=== PATIENT | male | born 1980 | race Hispanic/Latino ===

== ENCOUNTER → 2024-03-29 | Outpatient (REF) | payer MEDICARE | LOC: CT 07:29 | PROVIDERS: ATTEND Internal Medicine | DX: R16.1 Splenomegaly, not elsewhere classified (principal) | CPT/HCPCS: 74150 ==

== ENCOUNTER 2024-04-13 00:26 | Emergency (ER) | payer MEDICARE ==
[~2024-04-13] VITALS: Ht 177.8 cm; Wt 90.7 kg
[2024-04-13 00:55] VITALS: PULSE 87; RESP 16
[2024-04-13 01:05] LABS: BASOPHILS # (AUTO) 0.1 (0.0-0.1); BASOPHILS % 0.8 % (0.0-1.0); EOSINOPHILS # (AUTO) 0.7 (0.0-0.4); EOSINOPHILS % 9.4 % (0.0-6.0); HEMATOCRIT 43.9 % (38.2-49.6); HEMOGLOBIN 14.2 g/dL (14.0-18.0); LYMPHOCYTES % 26.1 % (18.0-39.1); MEAN CORPUSCULAR HGB CONC 32.3 g/dL (31-35); MEAN CORPUSCULAR VOLUME 89.8 fL (81-99); MONOCYTES # (AUTO) 0.5 (0.2-0.8); NEUTROPHILS # (AUTO) 4.3 (2.1-6.9); NEUTROPHILS % 57.4 % (38.7-80.0); PLATELET COUNT 233 x10e3/uL (140-360); RED BLOOD COUNT 4.89 x10e6/uL (4.3-5.7); RED CELL DISTRIBUTION WIDTH 13.2 % (11.7-14.4); WHITE BLOOD COUNT 7.55 x10e3/uL (4.8-10.8)
[2024-04-13] MEDS: SODIUM CHLORIDE 0.9% 1000ML 1,000 ML IV STA (01:21)
[2024-04-13] MEDS: METOCLOPRAMIDE HCL 10 MG/2ML VIAL IV ONE (01:22)
[2024-04-13 01:39] LABS: ALBUMIN 3.9 g/dL (3.5-5.0); ALBUMIN/GLOBULIN RATIO 1.2 (0.8-2.0); ANION GAP 17.7 mmol/L (8-16); BILIRUBIN,TOTAL 0.7 mg/dL (0.2-1.2); CALCIUM 9.6 mg/dL (8.4-10.2); CREATININE, SERUM 0.91 mg/dL (0.72-1.25); POTASSIUM 3.7 mmol/L (3.5-5.1); TOTAL PROTEIN 7.2 g/dL (6.5-8.1)
[2024-04-13 02:23] LABS: BILIRUBIN,URINE SMALL (NEGATIVE); CLARITY,URINE CLEAR (CLEAR); COLOR,URINE YELLOW (YELLOW); GLUCOSE, URINE >=1000 (NEGATIVE); KETONES,URINE 1+ (NEGATIVE); LEUKOCYTE ESTERASE ,URINE NEGATIVE (NEGATIVE); NITRITE,URINE NEGATIVE (NEGATIVE); PH,URINE 6 (5 - 7); PROTEIN,URINE DIPSTICK NEGATIVE (NEGATIVE)
[2024-04-13] MEDS ORDERED: REGLAN10 MG PO (02:23)
[2024-04-13 03:16] VITALS: TEMP 98.7
[2024-04-13 03:19] VITALS: BP 128/87; O2SAT 100
[2024-04-13 03:25] LABS: BACTERIA,URINE MODERATE /HPF; CALCIUM OXALATE CRYSTALS,UR MODERATE (FEW); EPITHELIAL CELLS,URINE FEW /LPF; RBC,URINE 0-5 /HPF (0-5); WBC,URINE (MAN) 0-5 /HPF (0-5)
[2024-04-15] MEDS ORDERED: ZESTRIL40 MG PO (08:24)
[2024-04-15] MEDS ORDERED: SERTRALINE HCL50 MG PO (08:24)
[2024-04-15] MEDS ORDERED: LIPITOR20 MG PO (08:24)
[2024-04-15] MEDS ORDERED: METOPROLOL SUCC25 MG PO (08:24)
[2024-04-15] MEDS ORDERED: PANTOPRAZOLE SO40 MG PO (08:24)
[2024-04-15] MEDS ORDERED: GLIMEPIRIDE2 MG PO (08:24)
[2024-04-15] MEDS ORDERED: JARDIANCE25 MG PO (08:24)
[2024-04-22] MEDS ORDERED: REGLAN5 MG PO (23:25)
== END 2024-04-13 03:13 | disposition home or self-care (01) ==
LOC: ER 00:35
DX: R11.2 Nausea with vomiting, unspecified (principal); R19.7 Diarrhea, unspecified; I10 Essential (primary) hypertension; E11.9 Type 2 diabetes mellitus without complications; E78.5 Hyperlipidemia, unspecified; K21.9 Gastro-esophageal reflux disease without esophagitis
CPT/HCPCS: 36415; 80053; 81001; 83690; 85025; 99284; J2765; J7030

== ENCOUNTER 2024-04-25 06:15 | Inpatient (IN) | payer MEDICARE ==
[~2024-04-25] VITALS: Ht 177.8 cm; Wt 88.9 kg
[~2024-04-25 06:15] MED LIST: BIOTIN1 MG PO; GLIMEPIRIDE2 MG PO; JARDIANCE25 MG PO; LIPITOR20 MG PO; METOPROLOL SUCC25 MG PO; MULTI-VITAMIN1 EACH PO; PANTOPRAZOLE SO40 MG PO; REGLAN10 MG PO; REGLAN5 MG PO; SERTRALINE HCL50 MG PO; VIAMIN PO; ZESTRIL40 MG PO
[2024-04-25] MEDS: LACTATED RINGER'S 1,000 ML ONE (07:45)
[2024-04-25] MEDS ORDERED: SUGAMMADEX SODIUM 200 MG/2 ML VIAL IV ONE (08:07)
[2024-04-25] MEDS ORDERED: SIMETHICONE 40 MG/0.6 ML BTL ONE (08:29)
[2024-04-25] MEDS ORDERED: MIDAZOLAM HCL 2 MG/2 ML VIAL ONE (09:46)
[2024-04-25] MEDS ORDERED: KETAMINE 50MG/5ML SYR ONE (09:46)
[2024-04-25] MEDS ORDERED: FENTANYL CITRATE/PF 100MCG/2 ML INJ ONE (11:05)
[2024-04-25] MEDS ORDERED: DEXTROSE 50% SYRINGE 50 ML IV PRN (12:00)
[2024-04-25] MEDS ORDERED: Morphine 2mg Syringe 2 MG/ML SYR IV PRN (12:00)
[2024-04-25] MEDS ORDERED: PROPOFOL IV EMULSION 10 MG/ML 20 ML VIAL ONE (14:22)
[2024-04-25] MEDS ORDERED: SEVOFLURANE INHAL SOLN 250 ML PEN BTL ONE (14:22)
[2024-04-25] MEDS ORDERED: LIDOCAINE HCL 2% LOCAL INJ 5 ML SDV VIAL INJ ONE (14:22)
[2024-04-25] MEDS ORDERED: SUCCINYLCHOLINE CHLORIDE 20 MG/ML 10ML VIAL ONE (14:22)
[2024-04-25] MEDS ORDERED: ONDANSETRON HCL INJ 2MG/ML 2ML 2 MG/ML VIAL ONE (14:22)
[2024-04-25] MEDS ORDERED: METOCLOPRAMIDE HCL 10 MG/2ML VIAL ONE (14:22)
[2024-04-25 15:10] VITALS: BP 119/86; PULSE 105; RESP 18; TEMP 97.9; O2SAT 100
[2024-04-25 16:00] VITALS: BP 121/87; PULSE 114; RESP 17; TEMP 98; O2SAT 99
[2024-04-25] MEDS: SODIUM CHLORIDE 0.9% 1000ML 1,000 ML IV SCH (16:04)
[2024-04-25] MEDS: INSULIN LISPRO 100 UNIT/1 ML 3ML VIAL SQ SCH (16:30)
[2024-04-25] MEDS: METOCLOPRAMIDE HCL 10 MG/2ML VIAL IV SCH (17:31)
[2024-04-25 20:00] VITALS: BP 134/91; PULSE 111; RESP 18; TEMP 98.6; O2SAT 100
[2024-04-25 21:00] VITALS: BP 134/91; PULSE 111; RESP 18; TEMP 98.6; O2SAT 100
[2024-04-25] MEDS ORDERED: BISACODYL 10 MG SUPP PR PRN (21:30)
[2024-04-25] MEDS: DEXTROSE 5%/0.45% SOD CHL 1,000 ML IV SCH (23:48)
[2024-04-26] VITALS (7 sets, daily range): BP systolic 116–168; BP diastolic 79–95; PULSE 87–108; RESP 16–20; TEMP 98–99.3; O2SAT 100
[2024-04-26 05:34] LABS: BASOPHILS % 0.7 % (0.0-1.0); EOSINOPHILS # (AUTO) 0.1 (0.0-0.4); EOSINOPHILS % 2.2 % (0.0-6.0); HEMATOCRIT 38.7 % (38.2-49.6); HEMOGLOBIN 12.6 g/dL (14.0-18.0); LYMPHOCYTES # (AUTO) 1.3 (1.0-3.2); MEAN CORPUSCULAR HEMOGLOBIN 29.2 pg (28-32); MEAN CORPUSCULAR HGB CONC 32.6 g/dL (31-35); MEAN CORPUSCULAR VOLUME 89.6 fL (81-99); MONOCYTES # (AUTO) 0.4 (0.2-0.8); MONOCYTES % 7.8 % (4.4-11.3); NEUTROPHILS # (AUTO) 3.6 (2.1-6.9); NEUTROPHILS % 66.1 % (38.7-80.0); PLATELET COUNT 216 x10e3/uL (140-360); RED BLOOD COUNT 4.32 x10e6/uL (4.3-5.7); RED CELL DISTRIBUTION WIDTH 13.3 % (11.7-14.4); WHITE BLOOD COUNT 5.51 x10e3/uL (4.8-10.8)
[2024-04-26 06:05] LABS: ALANINE AMINOTRANSFERASE 169 IU/L (0-55); ALBUMIN 3.5 g/dL (3.5-5.0); ALBUMIN/GLOBULIN RATIO 1.3 (0.8-2.0); ALKALINE PHOSPHATASE 47 IU/L (40-150); ANION GAP 18.1 mmol/L (8-16); BILIRUBIN,TOTAL 0.5 mg/dL (0.2-1.2); BLOOD UREA NITROGEN < 5 mg/dL (7-26); CALCIUM 8.6 mg/dL (8.4-10.2); CARBON DIOXIDE 17 mmol/L (22-29); CHLORIDE 107 mmol/L (98-107); CREATININE, SERUM 0.75 mg/dL (0.72-1.25); EST GLOMERULAR FILTRATION RATE 113 ML/MIN (>=60); GLUCOSE 73 mg/dL (74-118); MAGNESIUM 1.8 MG/DL (1.3-2.1); SODIUM 139 mmol/L (136-145); TOTAL PROTEIN 6.3 g/dL (6.5-8.1)
[2024-04-26 06:06] LABS: BUN/CREATININE RATIO 7 (6-25); POTASSIUM 3.1 mmol/L (3.5-5.1)
[2024-04-26] MEDS ORDERED: ALPRAZOLAM 0.5 MG TAB PO PRN (06:30)
[2024-04-26] MEDS: LORAZEPAM INJ 2 MG/ML VIAL IV PRN (07:31)
[2024-04-26] MEDS: POTASSIUM CHLORIDE 10MEQ/100ML 300 ML IV ONE (10:43)
[2024-04-26] MEDS ORDERED: PHENYLEPHRINE HCL 1% 10 MG/ML VIAL ONE (17:40)
[2024-04-26] MEDS ORDERED: SUCCINYLCHOLINE CHLORIDE 20 MG/ML 10ML VIAL ONE (17:40)
[2024-04-26] MEDS ORDERED: ONDANSETRON HCL INJ 2MG/ML 2ML 2 MG/ML VIAL ONE (17:40)
[2024-04-26] MEDS ORDERED: LIDOCAINE HCL 2% LOCAL INJ 5 ML SDV VIAL INJ ONE (17:40)
[2024-04-26] MEDS ORDERED: ROCURONIUM BROMIDE 10 MG/ML 5ML VIAL IV ONE (17:40)
[2024-04-26] MEDS ORDERED: PROPOFOL IV EMULSION 10 MG/ML 20 ML VIAL ONE (17:40)
[2024-04-26] MEDS ORDERED: DEXAMETHASONE SOD PHOS INJ 4 MG/ML SDV ONE (17:40)
[2024-04-26] MEDS: BISACODYL 10 MG SUPP PR SCH (21:29)
[2024-04-27] VITALS (8 sets, daily range): BP systolic 97–132; BP diastolic 77–93; PULSE 84–106; RESP 16–18; TEMP 97.8–98.4; O2SAT 98–100
[2024-04-27 05:42] LABS: BASOPHILS % 0.3 % (0.0-1.0); EOSINOPHILS # (AUTO) 0.5 (0.0-0.4); EOSINOPHILS % 7.9 % (0.0-6.0); HEMOGLOBIN 13.1 g/dL (14.0-18.0); LYMPHOCYTES # (AUTO) 1.4 (1.0-3.2); LYMPHOCYTES % 24.6 % (18.0-39.1); MEAN CORPUSCULAR VOLUME 90.9 fL (81-99); MONOCYTES # (AUTO) 0.5 (0.2-0.8); MONOCYTES % 7.9 % (4.4-11.3); NEUTROPHILS # (AUTO) 3.4 (2.1-6.9); PLATELET COUNT 212 x10e3/uL (140-360); RED BLOOD COUNT 4.51 x10e6/uL (4.3-5.7); RED CELL DISTRIBUTION WIDTH 13.3 % (11.7-14.4); WHITE BLOOD COUNT 5.82 x10e3/uL (4.8-10.8)
[2024-04-27 06:00] LABS: ANION GAP 12.1 mmol/L (8-16); BLOOD UREA NITROGEN < 5 mg/dL (7-26); CALCIUM 9.1 mg/dL (8.4-10.2); CARBON DIOXIDE 24 mmol/L (22-29); CHLORIDE 106 mmol/L (98-107); EST GLOMERULAR FILTRATION RATE 111 ML/MIN (>=60); GLUCOSE 91 mg/dL (74-118); MAGNESIUM 1.7 MG/DL (1.3-2.1); SODIUM 139 mmol/L (136-145)
[2024-04-27 06:03] LABS: BUN/CREATININE RATIO 6 (6-25); POTASSIUM 3.1 mmol/L (3.5-5.1)
[2024-04-27] MEDS: MAGNESIUM SULF 1GRAM/DEXTROSE 100 ML IV ONE (08:20)
[2024-04-27] MEDS: POTASSIUM CHLORIDE 20MEQ/100ML 100 ML IV SCH (11:08)
[2024-04-28] VITALS (8 sets, daily range): BP systolic 123–130; BP diastolic 87–92; PULSE 79–102; RESP 16–20; TEMP 97.6–99.2; O2SAT 99–100
[2024-04-28 06:12] LABS: ANION GAP 14.9 mmol/L (8-16); BLOOD UREA NITROGEN < 5 mg/dL (7-26); CALCIUM 8.9 mg/dL (8.4-10.2); CARBON DIOXIDE 22 mmol/L (22-29); CHLORIDE 106 mmol/L (98-107); CREATININE, SERUM 0.68 mg/dL (0.72-1.25); EST GLOMERULAR FILTRATION RATE 117 ML/MIN (>=60); GLUCOSE 92 mg/dL (74-118); MAGNESIUM 1.9 MG/DL (1.3-2.1); SODIUM 140 mmol/L (136-145)
[2024-04-28 06:21] LABS: BUN/CREATININE RATIO 7 (6-25)
[2024-04-28 06:22] LABS: POTASSIUM 2.9 mmol/L (3.5-5.1)
[2024-04-28 06:35] LABS: PHOSPHORUS 3.9 MG/DL (2.3-4.7)
[2024-04-28] MEDS: POTASSIUM CHLORIDE 20MEQ/100ML 100 ML IV ONE (07:40)
[2024-04-28] MEDS: DEXTROSE 5%/0.45% SOD CHL 1,000 ML IV SCH (08:00)
[2024-04-28] MEDS: POTASSIUM CHLORIDE 20MEQ/100ML 200 ML IV ONE (10:32)
[2024-04-29] VITALS (23 sets, daily range): BP systolic 101–148; BP diastolic 74–106; PULSE 82–112; RESP 9–31; TEMP 97.6–98.6; O2SAT 94–100
[2024-04-29 06:03] LABS: BASOPHILS % 0.7 % (0.0-1.0); EOSINOPHILS # (AUTO) 0.5 (0.0-0.4); EOSINOPHILS % 11.3 % (0.0-6.0); HEMATOCRIT 38.9 % (38.2-49.6); HEMOGLOBIN 12.7 g/dL (14.0-18.0); LYMPHOCYTES # (AUTO) 1.2 (1.0-3.2); MEAN CORPUSCULAR HEMOGLOBIN 29.1 pg (28-32); MEAN CORPUSCULAR HGB CONC 32.6 g/dL (31-35); MEAN CORPUSCULAR VOLUME 89.2 fL (81-99); MONOCYTES # (AUTO) 0.4 (0.2-0.8); MONOCYTES % 8.7 % (4.4-11.3); NEUTROPHILS # (AUTO) 2.2 (2.1-6.9); NEUTROPHILS % 51.1 % (38.7-80.0); PLATELET COUNT 205 x10e3/uL (140-360); RED BLOOD COUNT 4.36 x10e6/uL (4.3-5.7); RED CELL DISTRIBUTION WIDTH 13.3 % (11.7-14.4); WHITE BLOOD COUNT 4.35 x10e3/uL (4.8-10.8)
[2024-04-29 06:26] LABS: ANION GAP 12.2 mmol/L (8-16); BLOOD UREA NITROGEN < 5 mg/dL (7-26); CALCIUM 9.1 mg/dL (8.4-10.2); CARBON DIOXIDE 24 mmol/L (22-29); CHLORIDE 108 mmol/L (98-107); CREATININE, SERUM 0.73 mg/dL (0.72-1.25); EST GLOMERULAR FILTRATION RATE 114 ML/MIN (>=60); GLUCOSE 98 mg/dL (74-118); SODIUM 141 mmol/L (136-145)
[2024-04-29 06:27] LABS: BUN/CREATININE RATIO 7 (6-25); POTASSIUM 3.2 mmol/L (3.5-5.1)
[2024-04-29] MEDS: SODIUM CHLORIDE 0.9% 1000ML 1,000 ML ONE (10:25)
[2024-04-29] MEDS: POTASSIUM CHLORIDE 10MEQ/100ML 300 ML IV ONE (11:45)
[2024-04-29] MEDS ORDERED: MIDAZOLAM HCL 2 MG/2 ML VIAL ONE (12:47)
[2024-04-29] MEDS ORDERED: FENTANYL CITRATE/PF 100MCG/2 ML INJ ONE ×2 (12:47→12:57)
[2024-04-29] MEDS: ROPIVACAINE/EPI/CLONIDINE/KET 50 ML SYRINGE INJ ONE (13:22)
[2024-04-29] MEDS ORDERED: PROPOFOL IV EMULSION 10 MG/ML 20 ML VIAL ONE (17:23)
[2024-04-29] MEDS ORDERED: SUGAMMADEX SODIUM 200 MG/2 ML VIAL IV ONE (17:23)
[2024-04-29] MEDS ORDERED: LIDOCAINE HCL 2% LOCAL INJ 5 ML SDV VIAL INJ ONE (17:23)
[2024-04-29] MEDS ORDERED: ACETAMINOPHEN 1000 MG/100 ML IV ONE (17:23)
[2024-04-29] MEDS ORDERED: SEVOFLURANE INHAL SOLN 250 ML PEN BTL ONE (17:23)
[2024-04-29] MEDS ORDERED: DEXAMETHASONE SOD PHOS INJ 4 MG/ML SDV ONE (17:23)
[2024-04-29] MEDS ORDERED: PHENYLEPHRINE HCL 1% 10 MG/ML VIAL ONE (17:23)
[2024-04-29] MEDS ORDERED: DEXMEDETOMIDINE HCL 200 MCG/2 ML VIAL ONE (17:23)
[2024-04-29] MEDS ORDERED: ROCURONIUM BROMIDE 10 MG/ML 5ML VIAL IV ONE (17:23)
[2024-04-29] MEDS ORDERED: SUCCINYLCHOLINE CHLORIDE 20 MG/ML 10ML VIAL ONE (17:23)
[2024-04-29] MEDS ORDERED: ONDANSETRON HCL INJ 2MG/ML 2ML 2 MG/ML VIAL ONE (17:23)
[2024-04-29] MEDS: SODIUM CHLORIDE 0.9% 250ML IRRIG IR SCH (18:00)
[2024-04-29] MEDS: D5.45%NS/KCL 20MEQ 1,000 ML IV SCH (18:17)
[2024-04-29] MEDS: HYDROMORPHONE 1MG/1ML INJ IV PRN (18:34)
[2024-04-30] VITALS (45 sets, daily range): BP systolic 110–147; BP diastolic 72–106; PULSE 96–121; RESP 13–34; TEMP 98.2–99; O2SAT 90–96
[2024-04-30 06:35] LABS: BASOPHILS % 0.1 % (0.0-1.0); HEMOGLOBIN 13.7 g/dL (14.0-18.0); LYMPHOCYTES # (AUTO) 0.6 (1.0-3.2); LYMPHOCYTES % 7.7 % (18.0-39.1); MEAN CORPUSCULAR HEMOGLOBIN 28.9 pg (28-32); MEAN CORPUSCULAR HGB CONC 32.6 g/dL (31-35); MEAN CORPUSCULAR VOLUME 88.6 fL (81-99); MONOCYTES # (AUTO) 0.7 (0.2-0.8); MONOCYTES % 8.6 % (4.4-11.3); NEUTROPHILS # (AUTO) 6.3 (2.1-6.9); NEUTROPHILS % 83.3 % (38.7-80.0); PLATELET COUNT 248 x10e3/uL (140-360); RED BLOOD COUNT 4.74 x10e6/uL (4.3-5.7); RED CELL DISTRIBUTION WIDTH 13.4 % (11.7-14.4); WHITE BLOOD COUNT 7.52 x10e3/uL (4.8-10.8)
[2024-04-30 07:14] LABS: ALBUMIN 3.2 g/dL (3.5-5.0); ALBUMIN/GLOBULIN RATIO 1.2 (0.8-2.0); ANION GAP 12.7 mmol/L (8-16); BILIRUBIN,TOTAL 0.6 mg/dL (0.2-1.2); CALCIUM 8.5 mg/dL (8.4-10.2); CREATININE, SERUM 0.63 mg/dL (0.72-1.25); POTASSIUM 3.7 mmol/L (3.5-5.1); TOTAL PROTEIN 5.9 g/dL (6.5-8.1)
[2024-04-30] MEDS: ACETAMINOPHEN 1000 MG/100 ML IV PRN (09:31)
[2024-04-30] MEDS: BUPIVACAINE LIPOSOME/PF 266 MG/20 ML IJ ONE (13:09)
[2024-05-01] VITALS (22 sets, daily range): BP systolic 110–147; BP diastolic 80–107; PULSE 101–127; RESP 19–38; TEMP 96.7–99; O2SAT 92–100
[2024-05-01 06:33] LABS: BASOPHILS % 0.4 % (0.0-1.0); EOSINOPHILS # (AUTO) 0.1 (0.0-0.4); EOSINOPHILS % 1.1 % (0.0-6.0); HEMATOCRIT 41.5 % (38.2-49.6); HEMOGLOBIN 13.1 g/dL (14.0-18.0); LYMPHOCYTES # (AUTO) 0.6 (1.0-3.2); LYMPHOCYTES % 7.2 % (18.0-39.1); MEAN CORPUSCULAR HEMOGLOBIN 28.8 pg (28-32); MEAN CORPUSCULAR HGB CONC 31.6 g/dL (31-35); MEAN CORPUSCULAR VOLUME 91.2 fL (81-99); MONOCYTES # (AUTO) 0.7 (0.2-0.8); MONOCYTES % 8.1 % (4.4-11.3); NEUTROPHILS # (AUTO) 6.8 (2.1-6.9); PLATELET COUNT 211 x10e3/uL (140-360); RED BLOOD COUNT 4.55 x10e6/uL (4.3-5.7); RED CELL DISTRIBUTION WIDTH 13.3 % (11.7-14.4); WHITE BLOOD COUNT 8.19 x10e3/uL (4.8-10.8)
[2024-05-01 07:10] LABS: ALANINE AMINOTRANSFERASE 149 IU/L (0-55); ALBUMIN 2.9 g/dL (3.5-5.0); ALBUMIN/GLOBULIN RATIO 0.9 (0.8-2.0); ALKALINE PHOSPHATASE 47 IU/L (40-150); ANION GAP 12.7 mmol/L (8-16); BILIRUBIN,TOTAL 0.9 mg/dL (0.2-1.2); BLOOD UREA NITROGEN < 5 mg/dL (7-26); BUN/CREATININE RATIO 9 (6-25); CALCIUM 8.7 mg/dL (8.4-10.2); CARBON DIOXIDE 22 mmol/L (22-29); CHLORIDE 102 mmol/L (98-107); CREATININE, SERUM 0.58 mg/dL (0.72-1.25); EST GLOMERULAR FILTRATION RATE 123 ML/MIN (>=60); GLUCOSE 139 mg/dL (74-118); POTASSIUM 3.7 mmol/L (3.5-5.1); SODIUM 133 mmol/L (136-145)
[2024-05-01] MEDS: ONDANSETRON HCL INJ 2MG/ML 2ML 2 MG/ML VIAL IV PRN (12:42)
[2024-05-01 16:40] LABS: HEPATITIS B SURFACE AG (P) Non Reactive
[2024-05-01 16:41] LABS: HEPATITIS C ANTIBODY Non Reactive
[2024-05-01] MEDS: BISACODYL 10 MG SUPP PR SCH (20:56)
[2024-05-02] VITALS (18 sets, daily range): BP systolic 111–137; BP diastolic 78–98; PULSE 100–126; RESP 15–30; TEMP 96.7–98.8; O2SAT 91–100
[2024-05-02 05:13] LABS: BASOPHILS % 0.3 % (0.0-1.0); EOSINOPHILS # (AUTO) 0.2 (0.0-0.4); EOSINOPHILS % 3.8 % (0.0-6.0); HEMATOCRIT 38.7 % (38.2-49.6); HEMOGLOBIN 12.5 g/dL (14.0-18.0); LYMPHOCYTES # (AUTO) 0.7 (1.0-3.2); LYMPHOCYTES % 10.4 % (18.0-39.1); MEAN CORPUSCULAR HEMOGLOBIN 29.1 pg (28-32); MEAN CORPUSCULAR HGB CONC 32.3 g/dL (31-35); MONOCYTES # (AUTO) 0.5 (0.2-0.8); MONOCYTES % 7.9 % (4.4-11.3); NEUTROPHILS # (AUTO) 4.9 (2.1-6.9); NEUTROPHILS % 77.3 % (38.7-80.0); PLATELET COUNT 220 x10e3/uL (140-360); RED CELL DISTRIBUTION WIDTH 13.2 % (11.7-14.4); WHITE BLOOD COUNT 6.35 x10e3/uL (4.8-10.8)
[2024-05-02 05:48] LABS: ALANINE AMINOTRANSFERASE 103 IU/L (0-55); ALBUMIN 2.8 g/dL (3.5-5.0); ALBUMIN/GLOBULIN RATIO 0.9 (0.8-2.0); ALKALINE PHOSPHATASE 53 IU/L (40-150); ANION GAP 12.5 mmol/L (8-16); BLOOD UREA NITROGEN < 5 mg/dL (7-26); CALCIUM 8.7 mg/dL (8.4-10.2); CARBON DIOXIDE 25 mmol/L (22-29); CHLORIDE 104 mmol/L (98-107); CREATININE, SERUM 0.63 mg/dL (0.72-1.25); EST GLOMERULAR FILTRATION RATE 120 ML/MIN (>=60); GLUCOSE 139 mg/dL (74-118); POTASSIUM 3.5 mmol/L (3.5-5.1); SODIUM 138 mmol/L (136-145); TOTAL PROTEIN 5.9 g/dL (6.5-8.1)
[2024-05-02 05:50] LABS: BUN/CREATININE RATIO 8 (6-25)
[2024-05-02] MEDS: MAGNESIUM SULFATE 2GM/50ML 50 ML IV ONE (08:06)
[2024-05-03] VITALS: BP 109/84; PULSE 115; RESP 24; O2SAT 96
[2024-05-03 02:00] VITALS: BP 112/84; PULSE 108; RESP 16; O2SAT 92
[2024-05-03 04:00] VITALS: BP 123/86; PULSE 98; RESP 16; TEMP 98.3; O2SAT 95
[2024-05-03 06:00] VITALS: BP 107/86; PULSE 103; RESP 13; O2SAT 95
[2024-05-03 06:06] LABS: BASOPHILS % 0.4 % (0.0-1.0); EOSINOPHILS # (AUTO) 0.4 (0.0-0.4); EOSINOPHILS % 7.8 % (0.0-6.0); HEMATOCRIT 39.7 % (38.2-49.6); HEMOGLOBIN 12.2 g/dL (14.0-18.0); LYMPHOCYTES # (AUTO) 1.1 (1.0-3.2); LYMPHOCYTES % 22.2 % (18.0-39.1); MEAN CORPUSCULAR HEMOGLOBIN 28.4 pg (28-32); MEAN CORPUSCULAR HGB CONC 30.7 g/dL (31-35); MEAN CORPUSCULAR VOLUME 92.3 fL (81-99); MONOCYTES # (AUTO) 0.5 (0.2-0.8); MONOCYTES % 9.5 % (4.4-11.3); NEUTROPHILS # (AUTO) 2.8 (2.1-6.9); NEUTROPHILS % 59.9 % (38.7-80.0); PLATELET COUNT 266 x10e3/uL (140-360); RED CELL DISTRIBUTION WIDTH 13.1 % (11.7-14.4); WHITE BLOOD COUNT 4.72 x10e3/uL (4.8-10.8)
[2024-05-03 06:38] LABS: ALANINE AMINOTRANSFERASE 76 IU/L (0-55); ALBUMIN 2.7 g/dL (3.5-5.0); ALBUMIN/GLOBULIN RATIO 0.8 (0.8-2.0); ALKALINE PHOSPHATASE 49 IU/L (40-150); ANION GAP 11.5 mmol/L (8-16); BILIRUBIN,TOTAL 0.9 mg/dL (0.2-1.2); BLOOD UREA NITROGEN < 5 mg/dL (7-26); CARBON DIOXIDE 28 mmol/L (22-29); CHLORIDE 103 mmol/L (98-107); CREATININE, SERUM 0.64 mg/dL (0.72-1.25); EST GLOMERULAR FILTRATION RATE 119 ML/MIN (>=60); GLUCOSE 113 mg/dL (74-118); MAGNESIUM 1.9 MG/DL (1.3-2.1); POTASSIUM 3.5 mmol/L (3.5-5.1); SODIUM 139 mmol/L (136-145); TOTAL PROTEIN 6.1 g/dL (6.5-8.1)
[2024-05-03 06:39] LABS: BUN/CREATININE RATIO 8 (6-25)
[2024-05-03] MEDS: METOPROLOL SUCCINATE 25 MG TAB XL PO SCH (12:34)
[2024-05-03 20:00] VITALS: BP 114/79; PULSE 96; RESP 28; TEMP 99.1; O2SAT 93
[2024-05-04] VITALS (21 sets, daily range): BP systolic 104–139; BP diastolic 73–107; PULSE 95–127; RESP 16–31; TEMP 97.9–99.1; O2SAT 87–98
[2024-05-04] MEDS: METOCLOPRAMIDE HCL 10 MG/2ML VIAL IV STA (02:43)
[2024-05-04] MEDS: METOCLOPRAMIDE HCL 10 MG/2ML VIAL IV SCH (06:38)
[2024-05-04 06:53] LABS: BASOPHILS % 0.3 % (0.0-1.0); EOSINOPHILS % 0.7 % (0.0-6.0); HEMATOCRIT 37.7 % (38.2-49.6); HEMOGLOBIN 12.1 g/dL (14.0-18.0); LYMPHOCYTES # (AUTO) 0.5 (1.0-3.2); LYMPHOCYTES % 7.7 % (18.0-39.1); MEAN CORPUSCULAR HEMOGLOBIN 29.1 pg (28-32); MEAN CORPUSCULAR HGB CONC 32.1 g/dL (31-35); MEAN CORPUSCULAR VOLUME 90.6 fL (81-99); MONOCYTES # (AUTO) 0.5 (0.2-0.8); MONOCYTES % 7.5 % (4.4-11.3); NEUTROPHILS # (AUTO) 5.1 (2.1-6.9); NEUTROPHILS % 83.5 % (38.7-80.0); PLATELET COUNT 302 x10e3/uL (140-360); RED BLOOD COUNT 4.16 x10e6/uL (4.3-5.7); RED CELL DISTRIBUTION WIDTH 12.9 % (11.7-14.4); WHITE BLOOD COUNT 6.13 x10e3/uL (4.8-10.8)
[2024-05-04 07:21] LABS: ALANINE AMINOTRANSFERASE 55 IU/L (0-55); ALBUMIN 2.6 g/dL (3.5-5.0); ALBUMIN/GLOBULIN RATIO 0.8 (0.8-2.0); ALKALINE PHOSPHATASE 48 IU/L (40-150); ANION GAP 11.3 mmol/L (8-16); BLOOD UREA NITROGEN < 5 mg/dL (7-26); CALCIUM 8.4 mg/dL (8.4-10.2); CARBON DIOXIDE 23 mmol/L (22-29); CHLORIDE 103 mmol/L (98-107); CREATININE, SERUM 0.67 mg/dL (0.72-1.25); EST GLOMERULAR FILTRATION RATE 117 ML/MIN (>=60); GLUCOSE 276 mg/dL (74-118); POTASSIUM 4.3 mmol/L (3.5-5.1); SODIUM 133 mmol/L (136-145); TOTAL PROTEIN 5.8 g/dL (6.5-8.1)
[2024-05-04 07:23] LABS: BUN/CREATININE RATIO 7 (6-25)
[2024-05-04] MEDS: PROMETHAZINE 12.5MG/ NACL 0.9% 12.5 MG/50 ML BAG IV ONE (10:07)
[2024-05-05] VITALS (24 sets, daily range): BP systolic 118–142; BP diastolic 70–101; PULSE 94–113; RESP 13–35; TEMP 98–99.1; O2SAT 87–100
[2024-05-05] MEDS: PROMETHAZINE 12.5MG/ NACL 0.9% 12.5 MG/50 ML BAG IV PRN (02:40)
[2024-05-05 07:28] LABS: BASOPHILS % 0.5 % (0.0-1.0); EOSINOPHILS # (AUTO) 0.5 (0.0-0.4); EOSINOPHILS % 7.4 % (0.0-6.0); HEMATOCRIT 35.1 % (38.2-49.6); HEMOGLOBIN 11.4 g/dL (14.0-18.0); LYMPHOCYTES # (AUTO) 1.1 (1.0-3.2); LYMPHOCYTES % 17.7 % (18.0-39.1); MEAN CORPUSCULAR HGB CONC 32.5 g/dL (31-35); MEAN CORPUSCULAR VOLUME 89.3 fL (81-99); MONOCYTES # (AUTO) 0.5 (0.2-0.8); MONOCYTES % 8.2 % (4.4-11.3); NEUTROPHILS # (AUTO) 4.2 (2.1-6.9); NEUTROPHILS % 65.9 % (38.7-80.0); PLATELET COUNT 302 x10e3/uL (140-360); RED BLOOD COUNT 3.93 x10e6/uL (4.3-5.7); RED CELL DISTRIBUTION WIDTH 12.7 % (11.7-14.4); WHITE BLOOD COUNT 6.33 x10e3/uL (4.8-10.8)
[2024-05-05] MEDS: PROMETHAZINE 25MG/ NS 50ML (IV) IV PRN (07:48)
[2024-05-05 07:52] LABS: ALBUMIN 2.5 g/dL (3.5-5.0); ANION GAP 11.7 mmol/L (8-16); BILIRUBIN,TOTAL 0.9 mg/dL (0.2-1.2); CALCIUM 8.7 mg/dL (8.4-10.2); CREATININE, SERUM 0.66 mg/dL (0.72-1.25); MAGNESIUM 1.7 MG/DL (1.3-2.1); POTASSIUM 3.7 mmol/L (3.5-5.1); TOTAL PROTEIN 5.9 g/dL (6.5-8.1)
[2024-05-05 07:53] LABS: ALBUMIN/GLOBULIN RATIO 0.7 (0.8-2.0)
[2024-05-05 09:35] LABS: EOSINOPHILS % (MANUAL) 9 % (0-7); LYMPHOCYTES % (MANUAL) 25 % (19-48); MONOCYTES % (MANUAL) 4 % (3.4-9.0); NEUTROPHILS % (MANUAL) 62 % (40-74); PLATELET ESTIMATE ADEQUATE; PLATELET MORPHOLOGY COMMENT NORMAL; RBC MORPHOLOGY COMMENT NORMAL
[2024-05-05] MEDS: BACLOFEN 10 MG TAB PO SCH (11:45)
[2024-05-05] MEDS: MAGNESIUM SULFATE 2GM/50ML 50 ML IV ONE (12:28)
[2024-05-05] MEDS: TAMSULOSIN HCL 0.4 MG CAP PO SCH (21:00)
[2024-05-06] VITALS (18 sets, daily range): BP systolic 101–130; BP diastolic 65–95; PULSE 88–119; RESP 21–34; TEMP 97.9–100.2; O2SAT 92–97
[2024-05-06 06:49] LABS: BASOPHILS % 0.3 % (0.0-1.0); EOSINOPHILS # (AUTO) 0.4 (0.0-0.4); EOSINOPHILS % 5.7 % (0.0-6.0); HEMATOCRIT 33.4 % (38.2-49.6); HEMOGLOBIN 10.8 g/dL (14.0-18.0); LYMPHOCYTES # (AUTO) 1.1 (1.0-3.2); LYMPHOCYTES % 15.3 % (18.0-39.1); MEAN CORPUSCULAR HEMOGLOBIN 28.8 pg (28-32); MEAN CORPUSCULAR HGB CONC 32.3 g/dL (31-35); MEAN CORPUSCULAR VOLUME 89.1 fL (81-99); MONOCYTES # (AUTO) 0.6 (0.2-0.8); MONOCYTES % 8.1 % (4.4-11.3); NEUTROPHILS # (AUTO) 4.9 (2.1-6.9); NEUTROPHILS % 70.3 % (38.7-80.0); PLATELET COUNT 282 x10e3/uL (140-360); RED BLOOD COUNT 3.75 x10e6/uL (4.3-5.7); RED CELL DISTRIBUTION WIDTH 12.8 % (11.7-14.4)
[2024-05-06 07:14] LABS: ALBUMIN 2.4 g/dL (3.5-5.0); ALBUMIN/GLOBULIN RATIO 0.7 (0.8-2.0); ANION GAP 10.9 mmol/L (8-16); BILIRUBIN,TOTAL 0.8 mg/dL (0.2-1.2); CALCIUM 8.4 mg/dL (8.4-10.2); CREATININE, SERUM 0.67 mg/dL (0.72-1.25); MAGNESIUM 1.9 MG/DL (1.3-2.1); POTASSIUM 3.9 mmol/L (3.5-5.1); TOTAL PROTEIN 5.9 g/dL (6.5-8.1)
[2024-05-07] VITALS (29 sets, daily range): BP systolic 73–137; BP diastolic 53–113; PULSE 75–158; RESP 20–47; TEMP 97.6–102.6; O2SAT 67–100
[2024-05-07 03:55] LABS: BILIRUBIN,URINE NEGATIVE (NEGATIVE); CLARITY,URINE CLEAR (CLEAR); COLOR,URINE YELLOW (YELLOW); GLUCOSE, URINE NEGATIVE (NEGATIVE); KETONES,URINE NEGATIVE (NEGATIVE); LEUKOCYTE ESTERASE ,URINE NEGATIVE (NEGATIVE); NITRITE,URINE NEGATIVE (NEGATIVE); PH,URINE 5.5 (5 - 7); PROTEIN,URINE DIPSTICK NEGATIVE (NEGATIVE); URINE UROBILINOGEN 2 mg/dL (0.2 - 1)
[2024-05-07 03:58] LABS: EPITHELIAL CELLS,URINE RARE /LPF; RBC,URINE 0-5 /HPF (0-5); WBC,URINE (MAN) 0-5 /HPF (0-5)
[2024-05-07 03:59] LABS: BACTERIA,URINE FEW /HPF; MUCUS,URINE MODERATE (RARE)
[2024-05-07 07:07] LABS: BASOPHILS % 0.2 % (0.0-1.0); EOSINOPHILS # (AUTO) 0.1 (0.0-0.4); EOSINOPHILS % 1.5 % (0.0-6.0); HEMATOCRIT 32.3 % (38.2-49.6); HEMOGLOBIN 10.3 g/dL (14.0-18.0); LYMPHOCYTES # (AUTO) 0.8 (1.0-3.2); LYMPHOCYTES % 8.7 % (18.0-39.1); MEAN CORPUSCULAR HEMOGLOBIN 28.9 pg (28-32); MEAN CORPUSCULAR HGB CONC 31.9 g/dL (31-35); MEAN CORPUSCULAR VOLUME 90.5 fL (81-99); MONOCYTES # (AUTO) 0.8 (0.2-0.8); MONOCYTES % 9.1 % (4.4-11.3); NEUTROPHILS % 80.4 % (38.7-80.0); PLATELET COUNT 251 x10e3/uL (140-360); RED BLOOD COUNT 3.57 x10e6/uL (4.3-5.7); RED CELL DISTRIBUTION WIDTH 12.8 % (11.7-14.4); WHITE BLOOD COUNT 8.71 x10e3/uL (4.8-10.8)
[2024-05-07 07:39] LABS: ANION GAP 12.6 mmol/L (8-16); CREATININE, SERUM 0.7 mg/dL (0.72-1.25); POTASSIUM 3.6 mmol/L (3.5-5.1)
[2024-05-07] MEDS: ACETAMINOPHEN 1000 MG/100 ML IV ONE (19:10)
[2024-05-08] VITALS (42 sets, daily range): BP systolic 49–164; BP diastolic 25–136; PULSE 74–157; RESP 24–64; TEMP 98.9–101; O2SAT 84–100
[2024-05-08] MEDS ORDERED: ACETAMINOPHEN 1000 MG/100 ML IV PRN
[2024-05-08] MEDS: LIDOCAINE JELLY 2% 10ML URO-JET TOP ONE (03:57)
[2024-05-08 06:29] LABS: BASOPHILS % 0.5 % (0.0-1.0); HEMATOCRIT 34.7 % (38.2-49.6); LYMPHOCYTES # (AUTO) 0.4 (1.0-3.2); LYMPHOCYTES % 7.1 % (18.0-39.1); MEAN CORPUSCULAR HEMOGLOBIN 28.3 pg (28-32); MEAN CORPUSCULAR HGB CONC 31.7 g/dL (31-35); MEAN CORPUSCULAR VOLUME 89.2 fL (81-99); MONOCYTES # (AUTO) 0.3 (0.2-0.8); MONOCYTES % 5.4 % (4.4-11.3); NEUTROPHILS # (AUTO) 4.9 (2.1-6.9); NEUTROPHILS % 86.8 % (38.7-80.0); PLATELET COUNT 217 x10e3/uL (140-360); RED BLOOD COUNT 3.89 x10e6/uL (4.3-5.7); RED CELL DISTRIBUTION WIDTH 13.1 % (11.7-14.4)
[2024-05-08 06:56] LABS: ALBUMIN/GLOBULIN RATIO 0.6 (0.8-2.0); ANION GAP 18.7 mmol/L (8-16); BILIRUBIN,TOTAL 1.5 mg/dL (0.2-1.2); CALCIUM 7.8 mg/dL (8.4-10.2); POTASSIUM 3.7 mmol/L (3.5-5.1); TOTAL PROTEIN 5.2 g/dL (6.5-8.1)
[2024-05-08] MEDS: LORAZEPAM INJ 2 MG/ML VIAL IV PRN (06:58)
[2024-05-08 07:00] LABS: CREATININE, SERUM 1.47 mg/dL (0.72-1.25)
[2024-05-08] MEDS ORDERED: SODIUM CHLORIDE 0.9% 250ML 250 ML ONE (08:23)
[2024-05-08] MEDS: DEXMEDETOMIDINE 400MCG/NS100ML 100 ML IV PRN (08:34)
[2024-05-08] MEDS: MEROPENEM 1 GM in SODIUM CHLORIDE 0.9% 100 ML IV SCH (08:35)
[2024-05-08] MEDS: TAMSULOSIN HCL 0.4 MG CAP PO SCH (08:35)
[2024-05-08 09:17] LABS: ABG HCO3 12 mmol/L (22-26); ABG PCO2 21 mmHg (35-45); ABG PH 7.37 (7.35-7.45); ABG PO2 68 mmHg (80-105); ABG TCO2 12
[2024-05-08] MEDS: SODIUM BICARBONATE 8.4% INJ 50 ML SYR IV ONE ×2 (10:25→12:02)
[2024-05-08] MEDS: Vancomycin IV 1 GM in SODIUM CHLORIDE 0.9% 250ML 250 ML IV ONE (10:26)
[2024-05-08] MEDS: SODIUM CHLORIDE 0.9% 1000ML 1,000 ML IV ONE ×2 (10:27→10:34)
[2024-05-08] MEDS ORDERED: Vancomycin IV 1 GM VIAL ONE (10:28)
[2024-05-08 10:57] LABS: BAND NEUTROPHILS % (MANUAL) 5 %; LYMPHOCYTES % (MANUAL) 8 % (19-48); METAMYELOCYTES % (MANUAL) 3 % (0-0); MONOCYTES % (MANUAL) 7 % (3.4-9.0); NEUTROPHILS % (MANUAL) 77 % (40-74); PLATELET ESTIMATE ADEQUATE; PLATELET MORPHOLOGY COMMENT NORMAL; RBC MORPHOLOGY COMMENT NORMAL
[2024-05-08] MEDS: MAGNESIUM SULFATE 2GM/50ML 50 ML IV ONE (11:21)
[2024-05-08] MEDS: SODIUM BICARBONATE 8.4% SYRING 150 ML in DEXTROSE 5% 1,000 ML IV SCH (11:21)
[2024-05-08 14:32] LABS: BASOPHILS % 0.4 % (0.0-1.0); HEMATOCRIT 31.7 % (38.2-49.6); HEMOGLOBIN 9.9 g/dL (14.0-18.0); LYMPHOCYTES # (AUTO) 0.6 (1.0-3.2); LYMPHOCYTES % 7.3 % (18.0-39.1); MEAN CORPUSCULAR HEMOGLOBIN 28.4 pg (28-32); MEAN CORPUSCULAR HGB CONC 31.2 g/dL (31-35); MEAN CORPUSCULAR VOLUME 91.1 fL (81-99); MONOCYTES # (AUTO) 0.3 (0.2-0.8); MONOCYTES % 4.2 % (4.4-11.3); NEUTROPHILS # (AUTO) 7.1 (2.1-6.9); NEUTROPHILS % 87.9 % (38.7-80.0); PLATELET COUNT 216 x10e3/uL (140-360); RED BLOOD COUNT 3.48 x10e6/uL (4.3-5.7); RED CELL DISTRIBUTION WIDTH 13.4 % (11.7-14.4); WHITE BLOOD COUNT 8.07 x10e3/uL (4.8-10.8)
[2024-05-08 14:52] LABS: ANION GAP 23.3 mmol/L (8-16); CALCIUM 7.2 mg/dL (8.4-10.2); CREATININE, SERUM 2.09 mg/dL (0.72-1.25)
[2024-05-08 14:55] LABS: POTASSIUM 5.3 mmol/L (3.5-5.1)
[2024-05-08] MEDS: NOREPINEPHRINE 8 MG/D5W 250 ML 250 ML IV SCH (15:04)
[2024-05-08] MEDS: NOREPINEPHRINE 8 MG/D5W 250 ML 250 ML ONE (18:48)
[2024-05-08] MEDS ORDERED: Morphine 4mg INJECTION 4 MG/ML INJ ONE (22:45)
[2024-05-08] MEDS ORDERED: LORAZEPAM INJ 2 MG/ML VIAL ONE (22:46)
[2024-05-09 11:35] LABS: ALPHA FETO-PROTEIN 1.8 ng/mL (0.0-6.9)
== END 2024-05-08 21:38 | disposition hospice, inpatient (51) | DRG 326 ==
LOC: OR 06:15 → PACU V 10:14 → MED/SURG2 15:00 → ICU 04-29 14:30
PROVIDERS: ADMIT Internal Medicine; ATTEND Internal Medicine
PROC: 0DC68ZZ Extirpation of Matter from Stomach, Via Natural or Artificial Opening Endoscopic (ICD-10-PCS; 2024-04-25)
PROC: 0D778ZZ Dilation of Stomach, Pylorus, Via Natural or Artificial Opening Endoscopic (ICD-10-PCS; principal; 2024-04-25 08:08)
PROC: 0D160ZA Bypass Stomach to Jejunum, Open Approach (ICD-10-PCS; 2024-04-29)
PROC: 02HV33Z Insertion of Infusion Device into Superior Vena Cava, Percutaneous Approach (ICD-10-PCS; 2024-05-06)
PROC: 3E0333Z Introduction of Anti-inflammatory into Peripheral Vein, Percutaneous Approach (ICD-10-PCS; 2024-05-07)
PROC: 4A033R1 Measurement of Arterial Saturation, Peripheral, Percutaneous Approach (ICD-10-PCS; 2024-05-08)
PROC: 0T9B70Z Drainage of Bladder with Drainage Device, Via Natural or Artificial Opening (ICD-10-PCS; 2024-05-08)
PROC: 3E033XZ Introduction of Vasopressor into Peripheral Vein, Percutaneous Approach (ICD-10-PCS; 2024-05-08)
PROC: 5A09357 Assistance with Respiratory Ventilation, Less than 24 Consecutive Hours, Continuous Positive Airway Pressure (ICD-10-PCS; 2024-05-08)
DX: K31.1 Adult hypertrophic pyloric stenosis (principal); A41.9 Sepsis, unspecified organism; R65.21 Severe sepsis with septic shock; J96.01 Acute respiratory failure with hypoxia; N17.0 Acute kidney failure with tubular necrosis; E43 Unspecified severe protein-calorie malnutrition; J69.0 Pneumonitis due to inhalation of food and vomit; C16.9 Malignant neoplasm of stomach, unspecified; E87.20 Acidosis, unspecified; F84.0 Autistic disorder; Z66 Do not resuscitate; Z51.5 Encounter for palliative care; K27.9 Peptic ulcer, site unspecified, unspecified as acute or chronic, without hemorrhage or perforation; R62.50 Unspecified lack of expected normal physiological development in childhood; E11.9 Type 2 diabetes mellitus without complications; I10 Essential (primary) hypertension; D64.9 Anemia, unspecified; E78.2 Mixed hyperlipidemia; K21.9 Gastro-esophageal reflux disease without esophagitis; N40.1 Benign prostatic hyperplasia with lower urinary tract symptoms; R33.9 Retention of urine, unspecified; R39.16 Straining to void; K31.84 Gastroparesis; F32.A Depression, unspecified; E87.6 Hypokalemia; E83.42 Hypomagnesemia; Z68.28 Body mass index [BMI] 28.0-28.9, adult; Z79.84 Long term (current) use of oral hypoglycemic drugs; Z91.041 Radiographic dye allergy status
CPT/HCPCS: 36415; 36569; 36600; 43450; 71045; 71250; 74018; 74019; 74022; 74176; 80048; 80053; 81001; 82105; 82378; 82805; 82948; 83036; 83605; 83690; 83735; 83880; 84100; 84152; 85025; 86301; 87040; 88304; 88305; 88309; 88313; 88342; 93005; 93306; 94660; 94799; 99252; J0330; J0694; J1100; J1170; J2001; J2060; J2185; J2250; J2270; J2371; J2405; J2470; J2543; J2550; J2765; J3475; J3480; J7030; J7050; J7070

== ENCOUNTER 2024-05-08 21:38 | Inpatient (IN) | payer OTHER ==
[2024-05-08] MEDS ORDERED: SODIUM CHLORIDE FLUSH 10 ML SYR INJ PRN (22:15)
[2024-05-08] MEDS: LORAZEPAM INJ 2 MG/ML VIAL IV PRN (22:44)
[2024-05-08] MEDS: Morphine 4mg INJECTION 4 MG/ML INJ IV PRN ×2 (22:44→23:53)
[2024-05-09] VITALS (17 sets, daily range): BP systolic 52–104; BP diastolic 30–69; PULSE 93–121; RESP 8–30; TEMP 97.8–101.7; O2SAT 88–99
[2024-05-09] MEDS: LORAZEPAM INJ 2 MG/ML VIAL IV SCH (00:53)
[2024-05-09] MEDS: Morphine 4mg INJECTION 4 MG/ML INJ IV SCH (00:53)
[2024-05-09] MEDS: ACETAMINOPHEN 325 MG SUPP PR PRN (15:28)
[2024-05-10] VITALS (14 sets, daily range): BP systolic 102–120; BP diastolic 69–91; PULSE 110–117; RESP 4–12; TEMP 98.8–99.5; O2SAT 85–94
[2024-05-11] VITALS (12 sets, daily range): BP systolic 119–134; BP diastolic 83–90; PULSE 109–120; RESP 4–11; TEMP 98.7; O2SAT 91–97
[2024-05-11] MEDS: ONDANSETRON HCL INJ 2MG/ML 2ML 2 MG/ML VIAL IV PRN (08:01)
[2024-05-11] MEDS: LORAZEPAM INJ 2 MG/ML VIAL IV SCH (13:27)
[2024-05-11] MEDS: Morphine 4mg INJECTION 4 MG/ML INJ IV SCH (19:06)
[2024-05-11] MEDS: Morphine 4mg INJECTION 4 MG/ML INJ IV PRN (21:15)
[2024-05-12] VITALS (15 sets, daily range): BP systolic 113–141; BP diastolic 81–89; PULSE 111–121; RESP 6–15; TEMP 99–100.4; O2SAT 88–99
[2024-05-12] MEDS: LORAZEPAM INJ 2 MG/ML VIAL IV PRN (16:03)
[2024-05-12] MEDS: SCOPOLAMINE 1 MG PATCH TOP PRN (22:31)
[2024-05-13] VITALS (15 sets, daily range): BP systolic 111–122; BP diastolic 72–85; PULSE 117–126; RESP 6–15; TEMP 98–101.1; O2SAT 58–96
[2024-05-13] MEDS: LORAZEPAM INJ 2 MG/ML VIAL IV SCH (10:51)
[2024-05-13] MEDS: HYOSCYAMINE 0.125 MG TAB PO PRN (10:51)
[2024-05-13] MEDS: ATROPINE SULFATE 1% OPTH SOLN 5 ML OP SCH (11:22)
[2024-05-13] MEDS: HYOSCYAMINE 0.125 MG TAB PO ONE (11:27)
[2024-05-13] MEDS ORDERED: Morphine 4mg INJECTION 4 MG/ML INJ IV SCH (14:45)
[2024-05-13] MEDS: Morphine 4mg INJECTION 4 MG/ML INJ IV SCH (15:05)
[2024-05-13] MEDS: LORAZEPAM INJ 2 MG/ML VIAL IV PRN (15:05)
[2024-05-14] VITALS (8 sets, daily range): BP systolic 99–111; BP diastolic 73–78; PULSE 118–124; RESP 9–18; TEMP 97.5–100.7; O2SAT 76–88
[2024-05-14] MEDS: ATROPINE SULFATE 1% OPTH SOLN 5 ML SL SCH (17:07)
[2024-05-15] VITALS: BP 106/72; PULSE 121; RESP 10; TEMP 98; O2SAT 85
[2024-05-15 08:07] VITALS: BP 104/71; PULSE 128; RESP 9; TEMP 98; O2SAT 83
[2024-05-15 09:03] VITALS: BP 104/71; PULSE 128; RESP 9; TEMP 98; O2SAT 83
[2024-05-15 09:29] VITALS: BP 104/71; PULSE 120; RESP 9; TEMP 98; O2SAT 83
== END 2024-05-15 15:58 | disposition hospice, inpatient (51) | DRG 951 ==
LOC: ICU 21:38 → MED/SURG 05-13 15:39
PROVIDERS: ADMIT Internal Medicine; ATTEND Internal Medicine
DX: Z51.5 Encounter for palliative care (principal); A41.9 Sepsis, unspecified organism; J18.9 Pneumonia, unspecified organism; J96.90 Respiratory failure, unspecified, unspecified whether with hypoxia or hypercapnia; C16.9 Malignant neoplasm of stomach, unspecified; Z66 Do not resuscitate
CPT/HCPCS: 94799; J2060; J2270; J2405